=== PATIENT | male | born 1980 | race Caucasian/White ===

== ENCOUNTER 2019-02-24 12:00 | Emergency (ER) | payer OTHER ==
[~2019-02-24] VITALS: Ht 175.3 cm; Wt 90.7 kg
[2019-02-24 12:30] VITALS: BP 131/77
--- NOTE | 2019-02-24 12:35 | PHYS DOC ---
Adult General Chief Complaint Chief Complaint: LACERATION/AVULSION HPI HPI Patient is a 38 year old male presents to the ED complaining of right finger injury x 30 minutes ago. Patient was getting down off scaffolding and it was not locked and the scaffolding came down on his right third and fourth fingers. Patient suffered lacerations to the volar side of both fingers. no amputation. Describes the pain as sharp. Rates the pain as 9 out of 10. Patient is not up-to-date on his tetanus. Denies decreased ROM, head/neck injury, LOC, vision changes, nausea/vomiting, weakness, fever or active bleeding. Review of Systems Review of Systems Constitutional: Denies fever or chills [] Eyes: Denies change in visual acuity, redness, or eye pain [] HENT: Denies nasal congestion or sore throat [] Respiratory: Denies cough or shortness of breath [] Cardiovascular: No additional information not addressed in HPI [] GI: Denies abdominal pain, nausea, vomiting, bloody stools or diarrhea [] : Denies dysuria or hematuria [] Musculoskeletal: Complains of finger injury. Denies back pain or joint pain [] Integument: Denies rash or skin lesions [] Neurologic: Denies headache, focal weakness or sensory changes [] All other systems were reviewed and found to be within normal limits, except as documented in this note. Current Medications Current Medications Current Medications Medications (Trade) Dose Ordered Sig/Ezequiel Start Time Stop Time Status Last Admin Dose Admin Bacitracin 1 josé miguel 1X ONCE 02/24/19 15:00 02/24/19 15:01 DC 02/24/19 15:03 1 JOSÉ MIGUEL Diphtheria/ Tetanus/Acell Pertussis (Boostrix) 0.5 ml ONCE ONCE 02/24/19 15:00 02/24/19 15:01 DC 02/24/19 15:03 0.5 ML Lidocaine/Sodium Bicarbonate (Buffered Lidocaine 1%) 3 ml 1X ONCE 02/24/19 13:45 02/24/19 13:46 DC Allergies Allergies Allergies Coded Allergies Type Severity Reaction Last Updated Verified No Known Drug Allergies 02/24/19 No Physical Exam Physical Exam Constitutional: Well developed, well nourished, no acute distress, non-toxic appearance. [] HENT: Normocephalic, atraumatic Neck: Normal range of motion, no tenderness, supple, no stridor. [] Cardiovascular:Heart rate regular rhythm, no murmur [] Lungs & Thorax: Bilateral breath sounds clear to auscultation [] Skin: Warm, dry, no erythema, no rash. [] Back: No tenderness, no CVA tenderness. [] Extremities: Moderate distal 3rd and 4th finger tenderness. 2 cm laceration to distal 3rd and 4th fingers/DIP region. No tendon laceration or subungual hematoma/nail bed injury. no cyanosis, no clubbing, ROM intact, no edema. [] Neurologic: Alert and oriented X 3, normal motor function, normal sensory function, no focal deficits noted. [] Psychologic: Affect normal, judgement normal, mood normal. [] Current Patient Data Vital Signs Vital Signs Date Time Temp Pulse Resp B/P (MAP) Pulse Ox O2 Delivery O2 Flow Rate FiO2 02/24/19 12:30 97.7 59 20 131/77 (95) 98 Room Air 97.7 EKG EKG [] Radiology/Procedures Radiology/Procedures []PROCEDURE: FINGER(S) RIGHT Examination: 3 views of the right fingers HISTORY: History of injury, laceration COMPARISON: None available. Findings/ impression: Oblique nondisplaced fracture of the distal aspect of the distal jaydon of the third and fourth digits. Course & Med Decision Making Course & Med Decision Making Pertinent Labs and Imaging studies reviewed. (See chart for details) []Discussed imaging findings with patient. Lacerations copiously irrigated with 500 mL of normal saline. Lacerations repaired. No complications. Tetanus updated. No tendon laceration identified on exam. Finger placed in splint. Neurovascular intact post placement. Discussed follow-up with hand surgery at [facility] this week. Keflex and analgesics prescribed. Discussed reasons to return to the ED. Patient understands and agrees with plan. Dragon Disclaimer Dragon Disclaimer This electronic medical record was generated, in whole or in part, using a voice recognition dictation system. Departure Departure Impression: Primary Impression: Open finger fracture Disposition: 01 HOME, SELF-CARE Condition: IMPROVED Referrals: NO PCP (PCP) Patient Instructions: Finger Fracture, Fingertip Laceration Additional Instructions: Patients are seen in the clinic in the Orthopedic and Sports Medicine building on [facility] at the [facility] in [place], [place]. Appointments may be made with Miguel Holt MD, Ignacio Vega MD or Lakeisha Leger MD, by calling [phone]. Scripts Cephalexin (KEFLEX) 500 Mg Capsule 1 CAP PO TID, #21 CAP Prov: OTTONIEL LANCASTER 02/24/19 Hydrocodone/Apap 5-325 (NORCO 5-325 TABLET) 1 Each Tablet 1 TAB PO TID for 4 Days, #12 TAB Prov: OTTONIEL LANCASTER 02/24/19 Laceration/Wound Repair Laceration/Wound Repair : Wound Location: upper extremity (3rd finger) Wound's Depth, Shape: superficial Wound Length (cm): 2 Wound Explored: no foreign body removed Irrigated w/ Saline (ccs): 500 Betadine Prep?: Yes Anesthesia: 1% Lidocaine Volume Anesthetic (ccs): 3 Wound Repaired With: sutures Suture Size/Type: 4:0, nylon Number of Sutures: 8 Progress Tolerated well. no complications. Laceration/Wound Repair Laceration/Wound Repair : Wound Location: upper extremity (4th finger) Wound's Depth, Shape: superficial Wound Length (cm): 2 Wound Explored: no foreign body removed Irrigated w/ Saline (ccs): 500 Betadine Prep?: Yes Anesthesia: 1% Lidocaine Volume Anesthetic (ccs): 3 Wound Repaired With: sutures Suture Size/Type: 4:0, nylon Number of Sutures: 6 Progress Tolerated well. no complications. OTTONIEL LANCASTER Feb 24, 2019 12:35
[2019-02-24] MEDS ORDERED: LIDOCAINE WITH 8.4% SOD BICARB 3 ML DISP.SYRIN. INJ ONE ×3 (12:45→13:45)
--- NOTE | 2019-02-24 12:52 | RAD ---
Examination: 3 views of the right fingers HISTORY: History of injury, laceration COMPARISON: None available. Findings/ impression: Oblique nondisplaced fracture of the distal aspect of the distal jaydon of the third and fourth digits. Electronically signed by: Matthew Dumont MD (02/24/2019 12:49 PM) [id number]
[2019-02-24] MEDS ORDERED: HYDR-3164 PO (14:48)
[2019-02-24] MEDS ORDERED: CEPH-264 PO (14:48)
[2019-02-24] MEDS ORDERED: BACITRACIN TOPICAL OINT 14GM TUBE. TP ONE (15:00)
[2019-02-24] MEDS ORDERED: DIPHTH,PERTUSS(ACELL),TET TOX 0.5 ML DISP.SYRIN. VAX IM ONE (15:00)
== END 2019-02-24 15:18 | disposition home or self-care (01) ==
LOC: ER 12:00
DX: S62.662B Nondisplaced fracture of distal phalanx of right middle finger, initial encounter for open fracture (principal); S62.664B Nondisplaced fracture of distal phalanx of right ring finger, initial encounter for open fracture; W23.0XXA Caught, crushed, jammed, or pinched between moving objects, initial encounter; Y93.89 Activity, other specified; Y92.89 Other specified places as the place of occurrence of the external cause; Y99.8 Other external cause status
CPT/HCPCS: 29130; 73140; 90471; 90715; 99284